=== PATIENT | female | born 1990 | race Caucasian/White ===

== ENCOUNTER 2017-09-29 12:25 | Inpatient (IN) | payer OTHER ==
[~2017-09-29] VITALS: Ht 172.7 cm; Wt 92.0 kg
[~2017-09-29 12:25] MED LIST: CIPROFLOXACIN500 MG PO; ESCITALOPRAM OX20 MG PO; METRONIDAZOLE250 MG PO; MOTRIN IB200 MG PO; OXYCODON-ACETA1 EAC2 PO; TYLENOL325 MG PO
--- NOTE | 2017-11-16 12:11 | NUR ---
11/16/17 1211 Lanny Frank PATIENT ALERT AND ORIENTED X3 ON ARRIVAL TO ROOM. RESP EVEN AND UNLABORED, ON ROOM AIR. DENIES PAIN OR NAUSEA.
--- NOTE | 2017-11-17 07:55 | PR ---
[facility] [address] [facility] [place], [place] [address] Signed PP Progress Notes Datetime Report Generated by CHERYL: 11/17/2017 07:55 SUBJECTIVE: [id number] Pain: Within normal limits Nausea/Vomiting: Denies Flatus: Yes Vital Signs: [id number] Vital Signs: Reviewed; Within Normal Limits EXAM: [id number] Cardiovascular: Normal Respiratory: Normal Abdomen/Uterus: Abnormal Lochia: Normal Vulva/Perineum: Not Done Breasts: Not Done CVA Tenderness: Not Done Extremities: Normal Incision: Normal Progress: Normal Exam Comments: Abdomen with active BS. Fundus firm, NT @ U-1. H/H 10.7/31.3, WBC 9.1, plat 207k IMPRESSION/PLAN/PROCEDURES: [id number] Impression: Normal progression Other Plans: ambulate, D/C vaca, shower Procedures: None Progress Notes: Doing well. Will continue routine care. Signing Physician: Kristin Cope MD Copies: ~ *Electronically Signed* 11/17/17 0755 KRISTIN COPE MD PATIENT NAME: KEARA CARMONA PROGRESS NOTE DATE OF : 86 PHYSICIAN: KRISTIN COPE MD RPT #: [id number] REPORT IS CONFIDENTIAL AND NOT TO BE RELEASED WITHOUT AUTHORIZATION
--- NOTE | 2017-11-18 09:21 | PR ---
[facility] [facility] [address] [facility] [place], [place] [address] Signed PP Progress Notes Datetime Report Generated by CPN: 11/18/2017 09:21 SUBJECTIVE: [id number] Pain: Within normal limits Nausea/Vomiting: Denies Flatus: Yes Vital Signs: [id number] Vital Signs: Reviewed; Within Normal Limits EXAM: [id number] Cardiovascular: Not Done Respiratory: Not Done Abdomen/Uterus: Abnormal Lochia: Normal Vulva/Perineum: Not Done Breasts: Not Done CVA Tenderness: Not Done Extremities: Normal Incision: Normal Progress: Normal Exam Comments: Fundus firm, NT @ U-1. Cordran tape reapplied as fell off this am IMPRESSION/PLAN/PROCEDURES: [id number] Impression: Normal progression Plan: Discharge Other Plans: ambulate, D/C vaca, shower Procedures: None Progress Notes: Doing well. She is ready for D/C. Signing Physician: Michell Cope MD Copies: ~ *Electronically Signed* 11/18/17920 MICHELL COPE MD PATIENT NAME: CARMONA,KEARA ANIA PROGRESS NOTE DATE OF : 86 PHYSICIAN: MICHELL COPE MD RPT #: [id number] REPORT IS CONFIDENTIAL AND NOT TO BE RELEASED WITHOUT AUTHORIZATION
--- NOTE | 2017-12-06 08:28 | OR ---
[facility] [address] [place], [place] [address] Signed DATE OF OPERATION: 11/16/2017 SURGEON: Kristin Cope MD FIRE PREVENTION RESEARCH ENGINEER: Praful Farley MD PREOPERATIVE DIAGNOSIS: Term , prior section. POSTOPERATIVE DIAGNOSIS: Term , prior section, delivered. PROCEDURE: Repeat section with low segment transverse uterine incision. ANESTHESIA: Spinal. ESTIMATED BLOOD LOSS: 600 mL. DRAINS: Chan catheter. INDICATIONS AND FINDINGS: The patient is a 27-year-old female, 4, para 1, SAB 2, who was admitted at 39 and 1/7th weeks for repeat section. Her has been uncomplicated. She has undergone one prior for intolerance to labor. At the time of delivery, she was delivered of a little boy via lower segment transverse uterine incision from the OT position with Apgars of 8 and 9 and weight of 8 pounds. There was a nuchal cord x1 which was loose. PROCEDURE: The patient was prepped and draped in a supine position. The previous scar was removed from the Pfannenstiel incision. The incision was extended through the fascia and extended laterally. The inferior and superior fascial flaps were then created. The muscles were bluntly divided and the peritoneum opened bluntly, and the incision extended superiorly and inferiorly. The Austin retractor was then placed. The uterine incision was made at the upper aspect of the peritoneal reflection. The uterine wall Electronically Signed By: KRISTIN COPE MD 12/06/17 0828 PATIENT NAME: KEARA CARMONA OPERATIVE REPORT DATE OF : 86 REPORT #: [id number] PHYSICIAN: KRISTIN COPE MD PCP: Lisa BRAXTON MD REPORT IS CONFIDENTIAL AND NOT TO BE RELEASED WITHOUT AUTHORIZATION [facility] [address] [place], [place] [address] Signed was fairly thin. The baby was delivered with the above findings and handed off to the pediatric staff in attendance. The placenta was removed manually and the uterus explored with a lap tape showing no remaining fragments. The edges of the incision were identified. The uterus was closed in 2 layers using 0 Monocryl. The first layer was a running locking stitch and second was a vertical imbricating stitch. Additional amhnwa-jj-vpsbbv were required near the left angle for control of bleeding. The abdomen was then copiously irrigated and inspected and bleeding points were controlled on the peritoneal edges. Good hemostasis was noted. The retractor was then removed and the peritoneum identified. There was a single adhesion of the omentum causing a window and this was divided and free tied with 2-0 chromic reel. An ACell graft was then laid over the lower segment to aid in healing. The peritoneum was then closed in a running suture of 3-0 Vicryl. The muscles were brought together with interrupted sutures of 0 Vicryl. This layer was then irrigated and good hemostasis was seen. ACell powder was sprinkled over the muscles. The fascia was closed from each angle to the midline with running suture of 0 Vicryl. The subcutaneous tissue was irrigated and bleeding points controlled with cautery. Interrupted sutures of 3-0 Vicryl were used to close the subcu space. The skin incision was closed with a subcuticular suture of 3-0 Vicryl. This was followed by Mastisol and Steri-Strips. Cordran tape was also placed over the incision because of her history of keloid formation. All sponge and needle counts were correct. She has tolerated the procedure well and was taken to the recovery room in good condition. MD ROB MarieW/MODL /[id number] cc: Praful Farley MD Copies: PRAFUL FARLEY MD ~ Electronically Signed By: KRISTIN COPE MD 12/06/17 0828 PATIENT NAME: KEARA CARMONA OPERATIVE REPORT DATE OF : 86 REPORT #: [id number] PHYSICIAN: KRISTIN COPE MD PCP: Lisa BRAXTON MD REPORT IS CONFIDENTIAL AND NOT TO BE RELEASED WITHOUT AUTHORIZATION
== END 2017-11-18 12:25 | disposition home or self-care (01) | DRG 766 ==
LOC: FBC 11-16 06:21
PROVIDERS: ADMIT Obstetrics & Gynecology
PROC: 10D00Z1 Extraction of Products of Conception, Low, Open Approach (ICD-10-PCS; principal; 2017-11-16 11:00)
DX: O34.211 Maternal care for low transverse scar from previous cesarean delivery (principal); Z37.0 Single live birth; Z3A.39 39 weeks gestation of pregnancy; O69.81X0 Labor and delivery complicated by cord around neck, without compression, not applicable or unspecified; O77.0 Labor and delivery complicated by meconium in amniotic fluid; O99.824 Streptococcus B carrier state complicating childbirth; O99.344 Other mental disorders complicating childbirth; F41.9 Anxiety disorder, unspecified
CPT/HCPCS: 01961; 36415; 85027; C1763; J0690; J1200; J2274; J2300; J2405; J2590; J3010; J7120

== ENCOUNTER 2020-06-17 10:56 | Inpatient (IN) | payer OTHER ==
[~2020-06-17] VITALS: Ht 172.7 cm; Wt 133.4 kg
--- NOTE | 2020-06-18 09:10 | NUR ---
06/18/20 0910 Deanna Sofia 4615-PATIENT ARRIVED TO ROOM 103 ON RA AWAKE DENIES PAIN OR NAUSEA. REPORTS "FEELS ITCHY"PLAN TO MEDICATE. KNIGHT CATHETER DRAINING YELLOW URINE. IV INTACT LR WITH 20 PITOCIN TO LEFT HAND. FUNDUS FIRM AT UMBILICUS LIGHT RUBRA DRAINAGE. AT BEDSIDE. PATIENT ON RA. RR EVEN.
--- NOTE | 2020-06-19 08:10 | PR ---
[facility] [address] [facility] [place], [place] [address] Signed PP Progress Notes Datetime Report Generated by CPLeo: 06/19/2020 08:10 SUBJECTIVE: [id number] Pain: Within Normal Limits Nausea/Vomiting: Denies Flatus: No Vital Signs: [id number] Vital Signs: Reviewed; Within Normal Limits EXAM: Ongoing Cardiovascular: Normal Respiratory: Normal Abdomen/Uterus: Abnormal Lochia: Normal Vulva/Perineum: Not Done Breasts: Not Done CVA Tenderness: Not Done Extremities: Normal Incision: Normal Progress: Normal Exam Comments: Abdomen with active BS. Fundus firm, NT @ U-1. H/H 9.8/27.9, WBC 10.1, plat 192k IMPRESSION/PLAN/PROCEDURES: [id number] Impression: Normal Progression Other Plans: ambulate, shower Procedures: None Progress Notes: Doing well. Will continue routine care. Signing Physician: Kristin Cope MD Copies: ~ *Electronically Signed* 06/19/20 0810 KRISTIN COPE MD PATIENT NAME: KEARA CARMONA PROGRESS NOTE DATE OF : 86 PHYSICIAN: KRISTIN COPE MD RPT #: [id number] REPORT IS CONFIDENTIAL AND NOT TO BE RELEASED WITHOUT AUTHORIZATION
--- NOTE | 2020-06-20 08:50 | PR ---
[facility] [address] [facility] [place], [place] [address] Signed PP Progress Notes Datetime Report Generated by CPN: 06/20/2020 08:50 SUBJECTIVE: [id number] Pain: Within Normal Limits Nausea/Vomiting: Denies Flatus: Yes Vital Signs: [id number] Vital Signs: Reviewed; Within Normal Limits EXAM: Ongoing Cardiovascular: Not Done Respiratory: Not Done Abdomen/Uterus: Abnormal Lochia: Normal Vulva/Perineum: Not Done Breasts: Not Done CVA Tenderness: Not Done Extremities: Normal Incision: Normal Progress: Normal Exam Comments: Abdomen with active BS. Fundus firm, NT @ U-1. IMPRESSION/PLAN/PROCEDURES: [id number] Impression: Normal Progression Plan: Discharge Other Plans: ambulate, shower Procedures: None Progress Notes: Doing well. She is ready for D/C. Signing Physician: Michell Cope MD Copies: ~ *Electronically Signed* 06/20/20 0850 MICHELL COPE MD PATIENT NAME: KEARA CARMONA PROGRESS NOTE DATE OF : 86 PHYSICIAN: MICHELL COPE MD RPT #: [id number] REPORT IS CONFIDENTIAL AND NOT TO BE RELEASED WITHOUT AUTHORIZATION
--- NOTE | 2020-06-20 14:11 | OR ---
[facility] [address] [place], [place] [address] Signed DATE OF OPERATION: 06/18/2020 SURGEON: Kristin Cope MD MANAGEMENT REP: Praful Farley MD. PREOPERATIVE DIAGNOSES: Term , previous section x2. POSTOPERATIVE DIAGNOSES: Term , previous section x2, delivered. PROCEDURE: Repeat section with low segment transverse uterine incision, lysis of adhesions. ANESTHESIA: Spinal. ESTIMATED BLOOD LOSS: 700 mL. DRAINS: Chan catheter. INDICATIONS AND FINDINGS: The patient is a 30-year-old female, 5, para 2, SAB 2, admitted at 39 and 1/7th weeks for repeat section. Her has been remarkable only for anxiety on medication. At the time of surgery, she was delivered of a little girl via lower segment transverse uterine incision from the LOT position with Apgars of 9 and 9 and weight of 7 pounds 10 ounces. There was a nuchal cord x2. There were omental adhesions to the anterior peritoneum. The bladder flap was advanced onto the lower segment of the uterus. The tubes, ovaries, and placenta were normal. DESCRIPTION OF PROCEDURE: The patient was prepped and draped in the supine position. A repeat Pfannenstiel incision was made and carried down through the fascia. The incision was extended laterally. The inferior and superior fascial flaps were then created. The peritoneum was opened sharply and the muscles divided sharply and the peritoneum extended bluntly. Following this, the Austin retractor was placed. It could be placed despite the few Electronically Signed By: KRISTIN COPE MD 06/20/20 1411 PATIENT NAME: KEARA CARMONA OPERATIVE REPORT DATE OF : 86 REPORT #: [id number] PHYSICIAN: KRISTIN COEP MD PCP: TIFF MONTENEGRO MD REPORT IS CONFIDENTIAL AND NOT TO BE RELEASED WITHOUT AUTHORIZATION [facility] [address] [place], [place] [address] Signed adhesions that were present. The uterine incision was made at the upper aspect of the bladder flap. The baby was delivered with the above findings and handed off to the pediatric staff in attendance. The placenta was removed manually. The uterus was explored with a lap tape assuring no remaining fragments. The edges of the incision were identified and the uterus was closed in 2 layers using 0 Monocryl. The first layer was a running locking stitch and the second was a vertical imbricating stitch. Additional sutures were required on the left lower aspect of the incision to control bleeding. Bleeding points on the peritoneal edges were controlled with cautery. There was a blood vessel along the bladder flap area which required a daushw-po-iqrmn suture of 2-0 chromic. Pressure was applied to this area and the abdomen was irrigated and good hemostasis was noted. The Austin retractor was removed and the omental adhesions were identified and grasped with Suellen clamps and divided with the Shields scissors. Free ties of 2-0 chromic were used to tie these off. Tisseel was sprayed over the uterine incision to aid in hemostasis just given the amount of scarring that was present. An ACell graft was laid over the lower segment to aid in healing as well. The peritoneum was then closed with a running suture of 3-0 Vicryl. The muscles were brought together with interrupted sutures of 0 Vicryl. There was a fair amount of bleeding at the lower aspect of the muscles and a shvpul-jm-edcok suture of 0 Vicryl was required to control this bleeding as well. This layer was then irrigated, inspected, and good hemostasis was noted. ACell powder was sprinkled over the muscles to aid in healing. The fascia was closed from each angle to the midline with a running suture of 0 Vicryl. The subcu space was irrigated and inspected and bleeding points controlled with cautery. The deep space was closed with interrupted sutures of 3-0 Vicryl. The skin was closed subcuticular suture of 4-0 Vicryl. This was followed by Mastisol and Steri-Strips. Cordran tape was also placed over the incision secondary to her history of keloid scars. Following this, the dressing was applied and the patient was taken to the recovery room in good condition. All sponge and needle counts were correct. She tolerated the procedure well. Kristin Cope MD PJW/MODL /[id number] cc: Praful Farley MD Electronically Signed By: KRISTIN COPE MD 06/20/20 1411 PATIENT NAME: KEARA CARMONA OPERATIVE REPORT DATE OF : 86 REPORT #: [id number] PHYSICIAN: KRISTIN COPE MD PCP: TIFF MONTENEGRO MD REPORT IS CONFIDENTIAL AND NOT TO BE RELEASED WITHOUT AUTHORIZATION [place] [phone] Signed Copies: PRAFUL FARLEY MD ~ Electronically Signed By: KRISTIN COPE MD 06/20/20 1411 PATIENT NAME: KEARA CARMONA OPERATIVE REPORT DATE OF : 86 REPORT #: [id number] PHYSICIAN: KRISTIN COPE MD PCP: TIFF MONTENEGRO MD REPORT IS CONFIDENTIAL AND NOT TO BE RELEASED WITHOUT AUTHORIZATION
== END 2020-06-20 11:30 | disposition home or self-care (01) | DRG 788 ==
LOC: FBC 06-18 05:04
PROVIDERS: ADMIT Obstetrics & Gynecology; ATTEND Obstetrics & Gynecology
PROC: 10D00Z1 Extraction of Products of Conception, Low, Open Approach (ICD-10-PCS; principal; 2020-06-18 07:30)
DX: O34.211 Maternal care for low transverse scar from previous cesarean delivery (principal); N85.8 Other specified noninflammatory disorders of uterus; Z3A.39 39 weeks gestation of pregnancy; Z37.0 Single live birth; O32.2XX0 Maternal care for transverse and oblique lie, not applicable or unspecified; O99.824 Streptococcus B carrier state complicating childbirth; O99.344 Other mental disorders complicating childbirth; F41.9 Anxiety disorder, unspecified; O69.1XX0 Labor and delivery complicated by cord around neck, with compression, not applicable or unspecified
CPT/HCPCS: 01961; 36415; 85027; A9270; J0690; J1200; J1885; J2001; J2274; J2370; J2405; J2590; J3010; J7121

== ENCOUNTER 2024-04-16 08:22 | Day surgery (SDC) | payer OTHER ==
[~2024-04-16] VITALS: Ht 182.9 cm; Wt 93.4 kg
[~2024-04-16 08:22] MED LIST changes: +BUSPIRONE HCL5 MG PO; +CEFAZOLIN SODIUM 2 GM/20 ML SYR IV SCH; +CYMBALTA20 MG PO; +FLOMAX0.4 MG PO; +IBLOOD GLUCOSE TEST STRIP 1 EA TEST VI PRN; +LACTATED RINGER'S 1,000 ML IV SCH; +LIDOCAINE HCL 1% 5 ML SDV INJ ONE; +OMEPRAZOLE20 MG PO; +ONDANSETRON ODT8 MG PO; +PERCOCET 5-3251 EACH PO
[2024-04-16] MEDS ORDERED: OXYCODONE/APAP 5/325 TAB PO PRN (09:00)
[2024-04-16] MEDS ORDERED: KETOROLAC TROMETHAMINE 15 MG/ML VIAL IV PRN (09:00)
[2024-04-16] MEDS ORDERED: ondansetron HCL 4 MG/2 ML VIAL IV PRN ×2 (09:00→11:45)
[2024-04-16] MEDS ORDERED: MORPHINE SULFATE 4 MG/ML VIAL IV PRN (09:00)
[2024-04-16] MEDS ORDERED: HYDROmorphone HCL 1 MG/ML SYR IV PRN ×2 (09:00→11:45)
[2024-04-16] MEDS ORDERED: PHENAZOPYRIDINE HCL 95 MG TAB PO PRN (09:00)
[2024-04-16 09:02] VITALS: BP 136/78
[2024-04-16] MEDS ORDERED: propofoL 200 MG/20 ML VIAL ONE (09:58)
[2024-04-16] MEDS ORDERED: LIDOCAINE HCL 2% 5 ML SDV ONE (09:58)
[2024-04-16] MEDS ORDERED: MIDAZOLAM HCL 2 MG/2 ML VIAL ONE (09:58)
[2024-04-16] MEDS ORDERED: fentaNYL citrate 100 MCG/2 ML VIAL ONE ×2 (09:58→12:09)
[2024-04-16] MEDS ORDERED: DEXAMETHASONE SOD PHOS 4 MG/ML VIAL ONE ×3 (09:59→12:46)
[2024-04-16] MEDS ORDERED: ondansetron HCL 4 MG/2 ML VIAL ONE (09:59)
[2024-04-16] MEDS ORDERED: iopamidoL 30 ML VIAL ONE (10:49)
[2024-04-16] MEDS ORDERED: KETOROLAC TROMETHAMINE 30 MG/ML VIAL ONE (11:07)
[2024-04-16] MEDS ORDERED: ACETAMINOPHEN 1,000 MG/100 ML VIAL ONE (11:07)
[2024-04-16] MEDS ORDERED: LACTATED RINGER'S 1,000 ML IV ONE (11:39)
[2024-04-16] MEDS ORDERED: IBLOOD GLUCOSE TEST STRIP 1 EA TEST VI PRN (11:45)
[2024-04-16] MEDS ORDERED: droPERidol 5 MG/2 ML VIAL IV PRN (11:45)
[2024-04-16] MEDS ORDERED: PROCHLORPERAZINE EDISYLATE 10 MG/2 ML VIAL IV PRN (11:45)
[2024-04-16] MEDS ORDERED: NALOXONE HCL 0.4 MG SYR IV PRN (11:45)
[2024-04-16] MEDS ORDERED: fentaNYL citrate 50 MCG/ML SDV IV PRN (11:45)
--- NOTE | 2024-04-16 12:56 | NUR ---
04/16/24 1256 Yisel Benitez 1218 PT ARRIVED IN PACU NON RESPONSIVE TO NOXIOUS STIMULI. CHIN LIFT HELD TO KEEP AIRWAY OPEN. 1220 REPOSITIONED PT'S HEAD TO THE RIGHT TO KEEP AIRWAY OPEN WITHOUT A CHIN LIFT. 1225 PT REACTIVE AND TALKING TO STAFF. NO C/O'S. 1240 C/O URGE TO VOID. PLACED ON A BEDPAN. 1245 C/O NAUSEA. INAPSINE 0.625MG GIVEN IV. 1249 C/O ABD CRAMPING 7/10. FENTANYL 25MCG GIVEN IVP. 1255 ABD CRAMPING DOWN TO 6/10. FENTANYL 25MCG GIVEN IVP. NAUSEA PASSED AT THIS TIME.
[2024-04-16 13:07] VITALS: BP 129/87
--- NOTE | 2024-04-16 13:28 | NUR ---
LE 1305 PATIENT BACK TO ROOM 12. VITAL SIGNS COMPLETED. PATIENT ALERT AND ORIENTED. PATIENT PAIN IS A 5/10 PAIN. PATIENT DENIES BEING NAUSEATED. PATIENT STENT IN PLACE STRINGS VISIBLE. PATIENT GIVEN WATER AND CRACKERS. CALL LIGHT WITHIN REACH NO FUTHER NEEDS. NO QUESTIONS AT THIS TIME.
--- NOTE | 2024-04-16 13:31 | NUR ---
LE 1320 PATIENT GIVEN PRN PAIN MEDICINE. PATIENT RESTING AT THIS TIME. CALL LIGHT WITHIN REACH. NO FUTHER NEEDS. NO QUESITONS.
[2024-04-16 14:05] VITALS: BP 126/58
--- NOTE | 2024-04-16 15:04 | NUR ---
LE 1400 PATIENT PAIN HAS IMPROVED. PATIENT ABLE TO AMBULATE TO THE RESTROOM. VOIDED 400 MLS OF RED BLESSING URINE. PATIENT HAS MET DISCHARGE CRITERIA. PATIENT IV D/C'D WNL. PATIENT WHEELED OUT OF FACILITY. NO FUTHER NEEDS. NO QUESTIONS AT THIS TIME. MOTHER PRESENT.
[2024-04-18 05:39] LABS: CALCULI MASS 95 mg (())
== END 2024-04-16 14:20 | disposition home or self-care (01) ==
LOC: OPS 08:22 → DS 08:22 → OPS 10:40 → DS 13:05 → OPS 14:20
PROVIDERS: ATTEND Urology
PROC: 0T7B8DZ Dilation of Bladder with Intraluminal Device, Via Natural or Artificial Opening Endoscopic (ICD-10-PCS; 2024-04-16)
PROC: BT1FZZZ Fluoroscopy of Left Kidney, Ureter and Bladder (ICD-10-PCS; 2024-04-16)
PROC: 0TC18ZZ Extirpation of Matter from Left Kidney, Via Natural or Artificial Opening Endoscopic (ICD-10-PCS; principal; 2024-04-16 10:40)
PROC: 0TC78ZZ Extirpation of Matter from Left Ureter, Via Natural or Artificial Opening Endoscopic (ICD-10-PCS; 2024-04-16 10:40)
DX: N20.2 Calculus of kidney with calculus of ureter (principal); Z79.899 Other long term (current) drug therapy
CPT/HCPCS: 00910; 74420; 74450; 82365; C1769; C2617; J0131; J0690; J1100; J1790; J1885; J2001; J2250; J2405; J2704; J3010; J7121; Q9958